=== PATIENT | male | born 1945 | race Caucasian/White ===

== ENCOUNTER → 2016-07-03 | Outpatient (CLI) | payer OTHER, MEDICARE | LOC: BHFA 09:00 | PROVIDERS: ATTEND Internal Medicine Cardiovascular Disease | DX: R00.1 Bradycardia, unspecified (principal) ==

== ENCOUNTER → 2016-08-20 | Outpatient (CLI) | payer OTHER, MEDICARE | LOC: BHFA 08:30 | PROVIDERS: ATTEND Internal Medicine Cardiovascular Disease | DX: I25.10 Atherosclerotic heart disease of native coronary artery without angina pectoris (principal) | CPT/HCPCS: 78452; 93017; A9500; J2785 ==

== ENCOUNTER → 2016-09-14 | Outpatient (CLI) | payer OTHER ==
[~2016-09-14] MED LIST: IOPAMIDOL (ISOVUE-300) 100 ML BTL IV ONE
== END ==
LOC: CIMAGING 13:48
PROVIDERS: ATTEND Nurse Practitioner Adult Health
DX: R06.02 Shortness of breath (principal); I25.10 Atherosclerotic heart disease of native coronary artery without angina pectoris; R91.8 Other nonspecific abnormal finding of lung field; E78.5 Hyperlipidemia, unspecified; R74.8 Abnormal levels of other serum enzymes; Z85.09 Personal history of malignant neoplasm of other digestive organs; Z85.528 Personal history of other malignant neoplasm of kidney; Z95.5 Presence of coronary angioplasty implant and graft
CPT/HCPCS: 71260; Q9967

== ENCOUNTER → 2016-10-09 | Outpatient (CLI) | payer OTHER | LOC: CIMAGING 08:07 | PROVIDERS: ATTEND Internal Medicine | DX: R10.9 Unspecified abdominal pain (principal); Z85.00 Personal history of malignant neoplasm of unspecified digestive organ; Z85.528 Personal history of other malignant neoplasm of kidney; Z90.5 Acquired absence of kidney | CPT/HCPCS: 74177; Q9967 ==

== ENCOUNTER 2016-10-28 06:49 | Day surgery (SDC) | payer OTHER ==
[2016-10-28] MEDS ORDERED: FAMOTIDINE 20 MG TAB PO ONE (06:50)
[2016-10-28] MEDS ORDERED: ASPIRIN EC 325 MG TAB PO ONE (06:50)
[2016-10-28] MEDS ORDERED: diphenhydrAMINE 25 MG CAP PO ONE (06:50)
[2016-10-28] MEDS ORDERED: DIAZEPAM 5 MG TAB PO ONE (06:50)
[2016-10-28] MEDS ORDERED: NS 1,000 ML IV ONE (06:50)
--- NOTE | 2016-10-28 07:13 | CPEKG ---
Heart Rate: 51 RR Interval: 1176 P-R Interval: 200 QRSD Interval: 86 QT Interval: 432 QTC Interval: 398 P Milo: 42 QRS Milo: 26 T Wave Milo: 44 EKG Severity - OTHERWISE NORMAL ECG - EKG Impression: SINUS RHYTHM EKG Impression: LOW VOLTAGE IN FRONTAL LEADS Electronically Signed By: Hollis Thomas 28-Oct-2016 12:18:19
[2016-10-28 07:25] LABS: ADD DIFF? NO; ADD MORPH? NO; ADD SCAN? NO; ATYPICAL LYMPHOCYTE FLAG 0 (0-99); FRAGMENT RBC FLAG 0 (0-99); HEMATOCRIT 43.2 % (40.0-51.0); HEMOGLOBIN 15.4 g/dL (13.7-17.5); LEFT SHIFT FLG 10 (0-99); LIPEMIA HEMOLYSIS FLAG 90 (0-99); MEAN CELL HEMOGLOBIN 34.5 pg (27.9-34.1); MEAN CELL HEMOGLOBIN CONCENTR. 35.6 g/dL (32.4-36.7); MEAN CELL VOLUME 96.6 fL (81.5-99.8); MEAN PLATELET VOLUME 10.5 fL (8.7-11.7); PLATELET CLUMPS FLAG 10 (0-99); PLATELET COUNT 163 10^3/uL (150-400); RED BLOOD CELL COUNT 4.47 10^6/uL (4.40-6.38); RED CELL DISTRIBUTION WIDTH 12.6 % (11.5-15.2)
[2016-10-28 07:41] LABS: ANION GAP 10 mEq/L (8-16); CALCIUM 9.2 mg/dL (8.5-10.4); CARBON DIOXIDE 25 mEq/l (22-31); CHLORIDE 107 mEq/L (97-110); CHOLESTEROL 165 mg/dL (140-220); CHOLESTEROL/HDL RATIO 3.67 RATIO (1.00-4.97); GLOMERULAR FILTRATION RATE > 60; GLUCOSE 95 mg/dL (70-100); HIGH DENSITY LIPOPROTEIN 45 mg/dL (40-65); INR 1.08 (0.83-1.16); LDL/HDL RATIO 2.13 RATIO (1.00-3.64); LOW DENSITY LIPOPROTEIN 96 mg/dL (80-100); NON-HIGH DENSITY LIPOPROTEIN 120 mg/dL (90-129); POTASSIUM 4.4 mEq/L (3.5-5.2); PROTIME(PATIENT) 13.9 SEC (12.0-15.0); SODIUM 142 mEq/L (134-144); TRIGLYCERIDE 124 mg/dL (40-150); VERY LOW DENSITY LIPOPROTEINS 24 mg/dL (8-25)
[2016-10-28] MEDS ORDERED: fentaNYL 100 MCG/2 ML INJ ONE (08:04)
[2016-10-28] MEDS ORDERED: LIDOCAINE 1% 30 ML SDV ONE (08:04)
[2016-10-28] MEDS ORDERED: VERAPAMIL 5 MG/2 ML VIAL ONE (08:05)
[2016-10-28] MEDS ORDERED: IOPAMIDOL (ISOVUE-370) 150 ML BTL IV ONE (08:05)
[2016-10-28] MEDS ORDERED: MIDAZOLAM 2 MG/2 ML VIAL ONE (08:05)
[2016-10-28] MEDS ORDERED: HEPARIN 10,000 UNIT/10 ML MDV ONE (08:05)
[2016-10-28] MEDS ORDERED: ONDANSETRON 4 MG/2 ML VIAL IVP PRN (10:14)
[2016-10-28] MEDS ORDERED: NITROGLYCERIN 0.4 MG BTL SL PRN (10:14)
[2016-10-28] MEDS ORDERED: ATROPINE SULFATE 1 MG/10 ML SYR IVP PRN (10:14)
[2016-10-28] MEDS ORDERED: HYDROCODONE/APAP 5/325 TAB PO PRN (10:14)
[2016-10-28] MEDS ORDERED: OXYCODONE/APAP 5/325 TAB PO PRN (10:14)
--- NOTE | 2016-10-28 10:18 | PDDXCAT ---
Diagnostic Cath Note - . Date: 10/28/16 Order Processing Specialist: Justice Indication: Class I/II angina, intolerance to med therapy or failure to respond High-risk criteria on non-invasive testing: stress-induced moderate-size multiple perfusion defects - Procedure Access: right wrist Procedure: left heart catheterization, coronary angiography - Materials Left Heart Cath size: 5F Left Heart Cath materials: pigtail, other ([email or web address]) - Findings-Left Heart Catheterization LM: No focal obstruction, smaller caliber than proximal LAD. This suggests circumferential atherosclerosis. LAD: Stents widely patent without focal stenosis LCX: Unobstructed RCA: Dominant: Unobstructed EDP: 13 mm of mercury LVEF: 65% Wall motion: Normal Complications: None Estimated blood loss: <50ml Closure method: TR Band Assessment: 1. Widely patent site of prior stenting. 2. Ofsx-in-obdvohir nonobstructive atherosclerotic cardiovascular disease. 3. Normal left ventricular systolic function with normal filling pressures Plan: Aggressive cardiac rehabilitation. Continue aggressive secondary prevention. Considerations for VO2 max treadmill to determine etiology of exercise limitations. Patient Problems: Problems Problem Status Onset Renal mass Acute CAD (coronary artery disease) Acute Hypertension Acute
== END 2016-10-28 13:30 | disposition home or self-care (01) ==
LOC: FCATH 06:49
PROVIDERS: ATTEND Internal Medicine Interventional Cardiology
PROC: 4A023N7 Measurement of Cardiac Sampling and Pressure, Left Heart, Percutaneous Approach (ICD-10-PCS; principal; 2016-10-28)
PROC: B2151ZZ Fluoroscopy of Left Heart using Low Osmolar Contrast (ICD-10-PCS; principal; 2016-10-28)
PROC: B2111ZZ Fluoroscopy of Multiple Coronary Arteries using Low Osmolar Contrast (ICD-10-PCS; principal; 2016-10-28)
DX: I25.119 Atherosclerotic heart disease of native coronary artery with unspecified angina pectoris (principal)
CPT/HCPCS: 93005; 93458; C1769; J1644; J2250; J3010; Q9967

== ENCOUNTER → 2016-12-02 | Outpatient (CLI) | payer OTHER | LOC: CIMAGING 10:12 | PROVIDERS: ATTEND Orthopaedic Surgery | DX: M19.011 Primary osteoarthritis, right shoulder (principal); M24.011 Loose body in right shoulder | CPT/HCPCS: 73200-PO ==

== ENCOUNTER → 2016-12-28 | Outpatient (CLI) | payer OTHER | LOC: BHCLAF 09:15 | PROVIDERS: ATTEND Internal Medicine Cardiovascular Disease | DX: R06.00 Dyspnea, unspecified (principal); I25.10 Atherosclerotic heart disease of native coronary artery without angina pectoris | CPT/HCPCS: 93306-PO ==

== ENCOUNTER → 2017-02-24 | Outpatient (CLI) | payer OTHER | LOC: BHFA 10:00 | PROVIDERS: ATTEND Internal Medicine Cardiovascular Disease | DX: I25.10 Atherosclerotic heart disease of native coronary artery without angina pectoris (principal); R53.83 Other fatigue ==

== ENCOUNTER → 2017-09-27 | Outpatient (CLI) | payer OTHER, MEDICARE | LOC: SBRMNEURO 21:00 | PROVIDERS: ATTEND Physician Assistant Medical | DX: G47.33 Obstructive sleep apnea (adult) (pediatric) (principal); G47.61 Periodic limb movement disorder ==

== ENCOUNTER → 2017-12-27 | Outpatient (CLI) | payer OTHER, MEDICARE | LOC: BHLMT 14:00 | PROVIDERS: ATTEND Internal Medicine Cardiovascular Disease | DX: I27.20 Pulmonary hypertension, unspecified (principal) | CPT/HCPCS: 93306-PO ==

== ENCOUNTER → 2018-03-01 | Outpatient (CLI) | payer OTHER, MEDICARE ==
[~2018-03-01] MED LIST changes: -IOPAMIDOL (ISOVUE-300) 100 ML BTL IV ONE; +IOPAMIDOL (ISOVUE-300) 100 ML BTL ONE
== END ==
LOC: CIMAGING 13:16
PROVIDERS: ATTEND Specialist
DX: D30.01 Benign neoplasm of right kidney (principal)
CPT/HCPCS: 74178; Q9967; 82565-PO

== ENCOUNTER → 2018-05-20 | Outpatient (CLI) | payer OTHER, MEDICARE | LOC: BHFA 15:30 | PROVIDERS: ATTEND Internal Medicine Interventional Cardiology | DX: R00.1 Bradycardia, unspecified (principal); E78.5 Hyperlipidemia, unspecified; I10 Essential (primary) hypertension; R06.02 Shortness of breath ==

== ENCOUNTER → 2018-06-08 | Outpatient (CLI) | payer OTHER, MEDICARE | LOC: FIMAGING 16:04 | PROVIDERS: ATTEND Neurological Surgery | DX: Z98.890 Other specified postprocedural states (principal); G54.4 Lumbosacral root disorders, not elsewhere classified; M41.86 Other forms of scoliosis, lumbar region; M51.36 Other intervertebral disc degeneration, lumbar region ==

== ENCOUNTER → 2018-06-20 | Outpatient (CLI) | payer OTHER, MEDICARE | LOC: CIMAGING 10:06 | PROVIDERS: ATTEND Neurological Surgery | DX: M54.5 Low back pain (principal) | CPT/HCPCS: 72100-PO ==